=== PATIENT | male | born 1950 | race Caucasian/White ===

== ENCOUNTER → 2017-08-22 | Outpatient (CLI) | payer MEDICARE, OTHER ==
[~2017-08-22] MED LIST: ANDR1.62 IJ; ATOR40TA16 PO; HYDR-3366 PO; HYDR25TA5 PO; LEVO.1 PO; MOBI7.5T PO; OMEP20TA93 PO; POTA-163 PO; SYMB160A INH
[2017-08-22 12:43] LABS: AUTOMATED NEUTROPHIL # 5.8 TH/MM3 (1.8-7.7); BASOPHIL # 0.1 TH/MM3 (0-0.2); BASOPHIL % 0.9 % (0.0-2.0); EOSINOPHIL # 0.1 TH/MM3 (0-0.4); EOSINOPHIL % 1.1 % (0.0-4.0); HEMATOCRIT 45.9 % (39.0-51.0); HEMOGLOBIN 16.7 GM/DL (13.0-17.0); LYMPH % 13.1 % (9.0-44.0); MEAN CELL VOLUME 86.8 FL (80.0-100.0); MEAN CORPUSCULAR HEMOGLOBIN 31.6 PG (27.0-34.0); MEAN PLATELET VOLUME 9.3 FL (7.0-11.0); MONO % 9.3 % (0.0-8.0); MONOCYTE # 0.7 TH/MM3 (0-0.9); NEUT % 75.6 % (16.0-70.0); PLATELET COUNT 226 TH/MM3 (150-450); RED BLOOD COUNT 5.28 MIL/MM3 (4.50-5.90); RED CELL DISTRIBUTION WIDTH 13.8 % (11.6-17.2); WHITE BLOOD COUNT 7.6 TH/MM3 (4.0-11.0)
[2017-08-22 12:50] LABS: MEAN CORPUSCULAR HGB CONC 36.5 % (32.0-36.0)
[2017-08-22 12:58] LABS: PROTHROMBIN TIME - PATIENT 10.5 SEC (9.8-11.6)
[2017-08-22 13:01] LABS: ALBUMIN 4.1 GM/DL (3.4-5.0); BICARBONATE 28.8 MEQ/L (21.0-32.0); BLOOD UREA NITROGEN 24 MG/DL (7-18); CALCIUM 9.3 MG/DL (8.5-10.1); CHLORIDE 101 MEQ/L (98-107); GLOMERULAR FILTRATION RATE 51 ML/MIN (>89); GLUCOSE,FASTING 117 MG/DL (74-99); SODIUM (NA) 138 MEQ/L (136-145)
[2017-08-22 13:02] LABS: ALT (GPT) 28 U/L (12-78); AST (GOT) 29 U/L (15-37)
[2017-08-22 13:02] LABS: BLOOD, URINE NEG (NEG); GLUCOSE,URINE NEG (NEG); HYALINE CAST, URINE 1 /lpf (RARE); KETONE, URINE TRACE mg/dL (NEG); MUCUS URINE FEW /lpf (OCC); NITRITE,URINE NEG (NEG); PH, URINE 6.5 (5.0-8.5); URINE COLOR YELLOW (YELLW/STRAW); URINE LEUKOCYTE ESTERASE TRACE (NEG)
[2017-08-22 13:04] LABS: ALKALINE PHOSPHATASE 78 U/L (45-117); TOTAL BILIRUBIN ADULT 0.8 MG/DL (0.2-1.0); TOTAL PROTEIN 7.5 GM/DL (6.4-8.2)
[2017-08-22 13:05] LABS: BILIRUBIN, URINE NEG (NEG)
--- NOTE | 2017-08-22 13:38 | RADRPT ---
EXAM DATE/TIME: 08/22/2017 13:26 [facility] COMPARISON: No previous studies available for comparison. INDICATIONS : Evaluate for penumonia, pneumothorax, or communicable disease. Pre op for lumbar laminectomy. MEDICAL HISTORY : Osteoarthritis. Gastroesophageal reflux disease. Hyperthyroidism. Asthma. 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 SURGICAL HISTORY : Fusion, cervical. Total knee replacement, left. Total knee replacement, right. Right ear. ENCOUNTER: Initial ACUITY: 1 day PAIN SCORE: 0/10 LOCATION: chest FINDINGS: PA and lateral views of the chest demonstrate the lungs to be symmetrically aerated without evidence of mass, infiltrate or effusion. The cardiomediastinal contours are unremarkable. There is a densel y calcified granuloma in the anterior right lung base. The patient is status post lower cervical fusi on with screw-plate fixation device. Osseous structures are intact. CONCLUSION: No acute disease. Elkin Al MD on August 22, 2017 at 13:34 Board Certified Radiologist. This report was verified electronically.
--- NOTE | 2017-08-23 22:13 | EKG ---
Date Performed: 08/22/2017 Time Performed: 12:43:36 PTAGE: 67 years EKG: Possible ectopic atrial rhythm Borderline ECG NO PREVIOUS TRACING DOCTOR: Jenni Mueller Interpretating Date/Time 08/23/2017 22:12:26
== END ==
LOC: CPRE 13:20
PROVIDERS: ATTEND Neurological Surgery
DX: Z01.810 Encounter for preprocedural cardiovascular examination (principal); Z01.811 Encounter for preprocedural respiratory examination; Z01.812 Encounter for preprocedural laboratory examination; M48.062 Spinal stenosis, lumbar region with neurogenic claudication; R94.31 Abnormal electrocardiogram [ECG] [EKG]; Z79.01 Long term (current) use of anticoagulants
CPT/HCPCS: 36415; 71046; 80053; 81001; 85025; 85610; 85730; 87640; 87641; 93005

== ENCOUNTER → 2017-08-23 | Day surgery (SDC) | payer MEDICARE, OTHER ==
[~2017-08-23] VITALS: Ht 172.7 cm; Wt 67.3 kg
[~2017-08-23] MED LIST changes: +ACETAMINOPHEN/HYDROcodone 325 MG/10 MG TAB ONE; +ACETAMINOPHEN/HYDROcodone 325 MG/10 MG TAB PO ONE; +BUPIVACAINE/EPINEPHRINE 0.5% 50 ML VIAL ONE; +CHLORHEXIDINE GLUCONATE 2 % 1 PACK (2 CLOTHS) TOPICAL PRN; +DEXAMETHASONE SOD PHOS 4 MG/ML VIAL IV ONE; +DEXMEDETOMIDINE HCL 200 MCG/2 ML VIAL ONE; +DO NOT ADM ANY ANTICOAGULANT DRUGS PRN; +GELFOAM SIZE 100 ONE; +GLYCOPYRROLATE 1 MG/5 ML SYRINGE IV PUSH ONE; +LACTATED RINGER'S 1000 ML INJ 1,000 ML IV ONE; +LACTATED RINGER'S 1000 ML IV PRN; +LIDOCAINE HCL 1% PF 5 ML SYRINGE OTHER ONE; +METOPROLOL TARTRATE 25 MG TAB PO PRN; +MIDAZOLAM HCL 2 MG/2 ML VIAL ONE; +NEOSTIGMINE 5 MG/5 ML SYRINGE IV PUSH ONE; +ONDANSETRON HCL 4 MG/2 ML VIAL IV ONE; +PHENYLEPH/NS 1000 MCG/10 ML SYR IV ONE; +POVIDONE IODINE 5% (ANTISEPSIS KIT) 4 APPLICATIONS EACH NARE PRN; +PROPOFOL 200 MG/20 ML AMP IV ONE; +ROCURONIUM INJ 50 MG/5 ML SYRINGE IV PUSH ONE; +SODIUM CHLOR 0.9% 1000 ML INJ 1,000 ML IV SCH; +SODIUM CHLORID 0.9% 500 ML IV PRN; +THROMBIN (TOPICAL) 5,000 UNIT VIAL ONE; +VANCOMYCIN 1,000 MG/NS 250 ML IV SCH; +VANCOMYCIN HCL 1000 MG VIAL ONE; +methylPREDNISolone ACETATE 40 MG/ML VIAL ONE
--- NOTE | 2017-08-23 13:51 | PD.OP ---
Operative Report Date of Surgery: Aug 23, 2017 Preoperative Diagnosis: Lumbar L3-4 spinal stenosis with a central disc herniation and facet/ligamentum flavum hypertrophy Postoperative Diagnosis: Same Procedure: Lumbar L3-4 decompressive laminectomy with microdiscectomy; microsurgical technique Anesthesia: Gen. endotracheal by Inocente anderson Surgeon: Trent Aguilar M.D. [employer] Agent(s): Tessy Laguna Operation and Findings: Following administration of general endotracheal anesthesia, patient received vancomycin 1 g intravenously. Sequential compression devices were placed for DVT prophylaxis. He was then turned in prone position on Cesar frame and the Hai table and all pressure points adequately padded. The lumbar region was then shaved and prepped with a Betadine and ChloraPrep. Sterile draping undertaken with Ioban. Midline incision overlying the L3-L4 level was then made after infiltrating the skin with 0.5% Marcaine with epinephrine solution. The skin incision was made extending down through the fascia and then using the subperiosteal plane on the left side the muscular attachments to the spinous process and lamina were detached. Intraoperative fluoroscopy was used for level confirmation and further dissection undertaken using microtechnique with microscope magnification. The inferior portion of the L3 and portion of the L4 lamina was then drilled out and the underlying ligamentum flavum also removed. There was facet arthropathy noted in the medial portion of facet was also resected and the lateral recess decompressed. Epidural venous stasis with the bipolar cautery along with Gelfoam and thrombin and bone wax used at the laminotomy edges for hemostasis. The thecal sac was then gently retracted with a nerve root retractor and an extruded disc fragment was identified which was central. Fragments were removed with pituitary forceps and the nerve root impingement along with thecal sac compression decompressed. Mental lateral leave the dura was thinned out from a drainage of this disc herniation but no CSF leak was encountered. This was reinforced with the compressed Gelfoam and DuraSeal. The area was then copiously irrigated with vancomycin solution. The retractors removed and the muscle fascia proximal using 2-0 Vicryl interrupted stitches. 3-0 Vicryl subcuticular stitches were also placed in an interrupted fashion and planned skin closure was with Mastisol and Steri-Strips. A sterile dressing was then applied and the patient then turned in the supine position and extubated and taken to recovery room in stable condition. There were no intraoperative complications and all sponge and needle count was correct at the end of the procedure. Estimated blood loss about 25 cc. Trent Aguilar MD Aug 23, 2017 13:50
--- NOTE | 2017-08-23 14:44 | RADRPT ---
EXAM DATE/TIME: 08/23/2017 11:50 [facility] COMPARISON: No previous studies available for comparison. INDICATIONS : Level Localization L3,L4 for laminectomy. MEDICAL HISTORY : Osteoarthritis. Gastroesophageal reflux disease. Hyperthyroidism. Asthma.Lung cyst due to old fungal infection. SURGICAL HISTORY : Fusion, cervical. Total knee replacement, left. Total knee replacement, right. ENCOUNTER: Initial ACUITY: 1 day PAIN SCORE: Non-responsive. LOCATION: Lumbar spine. FINDINGS: Metallic probe at L3 and L4 pedicle. CONCLUSION: Localization as above.. Tez Arvizu MD FACR on August 23, 2017 at 14:40 Board Certified Radiologist. This report was verified electronically.
[2017-08-23 15:36] VITALS: BP 105/69; PULSE 65; RESP 16; TEMP 97; O2SAT 95
== END | disposition home or self-care (01) ==
LOC: HSDC 08:54
PROVIDERS: ATTEND Neurological Surgery
DX: M48.062 Spinal stenosis, lumbar region with neurogenic claudication (principal); J45.909 Unspecified asthma, uncomplicated; K21.9 Gastro-esophageal reflux disease without esophagitis
CPT/HCPCS: 00630; 63030; 72020; 76000; J1030; J1100; J2250; J2370; J2405; J2710; J3010; J3370; J7120